=== PATIENT | female | born 1930 | race Caucasian/White ===

== ENCOUNTER → 2018-11-25 | Day surgery (SDC) | payer OTHER ==
[2018-11-18 14:14] VITALS: BMI 28.3
[2018-11-25] MEDS: TROPICAMIDE 1% OPHTH SOLN 15 ML BOTTLE ONE ×5 (10:50→11:10)
[2018-11-25] MEDS: OFLOXACIN 0.3% OPHTHALMIC SOLUTION 5 ML BOTTLE ONE ×5 (10:50→11:10)
[2018-11-25] MEDS: KETOROLAC TROMETHAMINE 0.5% EYE DROP 1 DROP DROPS ONE ×5 (10:50→11:10)
[2018-11-25] MEDS: PHENYLEPHRINE 2.5% OPHTH SOLN 15 ML BOTTLE ONE ×5 (10:50→11:10)
[2018-11-25] MEDS: CYCLOPENTOLATE HCL 1% OPHTH SOLN 2 ML BOTTLE ONE ×5 (10:50→11:10)
[2018-11-25 10:53] VITALS: BP 190/83; PULSE 92; TEMP 98.6
== END | disposition home or self-care (01) ==
LOC: FASU 09:22
PROVIDERS: ATTEND Ophthalmology
PROC: 08RK3JZ Replacement of Left Lens with Synthetic Substitute, Percutaneous Approach (ICD-10-PCS; principal; 2018-11-25)
DX: H26.9 Unspecified cataract (principal); Z53.09 Procedure and treatment not carried out because of other contraindication
CPT/HCPCS: 82962